=== PATIENT | male | born 1955 | race Two or more races ===

== ENCOUNTER 2025-03-25 22:18 | Inpatient (IN) | payer MEDICARE, OTHER ==
[~2025-03-25] VITALS: Ht 152.4 cm; Wt 68.0 kg
[2025-03-25] MEDS ORDERED: CEPH500T PO (22:35)
[2025-03-25] MEDS ORDERED: OXYC10TA49 PO (22:35)
[2025-03-25] MEDS ORDERED: MORP15TA60 PO (22:35)
[2025-03-25 22:53] LABS: ABG BASE EXCESS 3.9 mmol/L (-2.0-3.0); ABG HCO3 26.1 mmol/L (21.0-28.0); ABG PCO2 30.7 mmHg (35.0-48.0); ABG PH 7.548 (7.350-7.450); ABG PO2 77.7 mmHg (83.0-108.0); ABG SITE RIGHT RADIAL; ABG TOTAL HEMOGLOBIN 9.3 G/dL (13.5-17.5); AaDO2 96.9 mmHg; FIO2 21.0 %
[2025-03-25 22:54] LABS: PLATELET COUNT (AUTO) 87 K/uL (152-348); RED BLOOD CELL COUNT(AUTO) 2.67 MIL/uL (4.06-5.63); RED CELL DISTRIBUTION WIDTH 18.0 % (12.1-16.2); WHITE BLOOD COUNT (AUTO) 5.4 K/uL (3.6-10.2)
[2025-03-25 23:02] LABS: CREATININE 0.4 mg/dL (0.6-1.3); SODIUM SERUM 128 mmol/L (136-145); UREA NITROGEN, BLOOD 12 mg/dL (7-18)
[2025-03-25 23:19] LABS: ASPARTATE AMINOTRANSFERASE 54 U/L (15-37); TOTAL PROTEIN, SERUM 5.6 g/dL (6.4-8.2)
[2025-03-25 23:39] LABS: *BILIRUBIN,URIN NEGATIVE (NEGATIVE); *BLOOD, URINE 2+ (NEGATIVE); *CLARITY,URINE CLEAR (CLEAR); *COLOR,URINE YELLOW (YELLOW); *KETONES,URINE NEGATIVE (NEGATIVE); *PROTEIN,URINE NEGATIVE (NEGATIVE); *UROBILINOGEN,URINE 1.0 E.U./dl (NORMAL); LEUKOCYTE ESTERASE ,URINE 3+ (NEGATIVE); NITRITE, URINE NEGATIVE (NEGATIVE); UGLUCOSE NEGATIVE (NEGATIVE)
[2025-03-25] MEDS ORDERED: MORPHINE SULFATE 4 MG/1 ML DISP.SYRIN ONE (23:58)
[2025-03-25] MEDS ORDERED: MORPHINE SULFATE 2 MG/1 ML DISP.SYRIN ONE (23:58)
[2025-03-26] VITALS (8 sets, daily range): BP systolic 83–124; BP diastolic 58–82; TEMP 97.8–99.4; O2SAT 97–100
[2025-03-26] MEDS: MORPHINE SULFATE 4 MG/1 ML DISP.SYRIN IV ONE (00:02)
[2025-03-26 00:09] LABS: SQUAMOUS EPITHELIAL CELL,UR NONE SEEN /HPF (NONE SEEN)
[2025-03-26] MEDS ORDERED: IOHEXOL 350 100 ML INFUS..BTL ONE (00:11)
[2025-03-26] MEDS ORDERED: SWABABLE VALVE TRANSFER SET EA MC ONE (00:11)
[2025-03-26] MEDS ORDERED: IV NORMAL SALINE 250 ML IV ONE (00:11)
[2025-03-26] MEDS ORDERED: MAGNESIUM HYDROXIDE 30 ML LIQUID UDC PO PRN (03:15)
[2025-03-26] MEDS ORDERED: REMEDY ESSENTIAL ZINC PASTE 113 GM TP PRN (03:15)
[2025-03-26] MEDS ORDERED: CEFTRIAXONE /D5W 50ML IVPB **ER PYXIS IV ONE (03:37)
[2025-03-26] MEDS: PANTOPRAZOLE SODIUM 40 MG TABLET.DR PO SCH (06:19)
[2025-03-26 06:59] LABS: PLATELET COUNT (AUTO) 85 K/uL (152-348); RED BLOOD CELL COUNT(AUTO) 2.68 MIL/uL (4.06-5.63); RED CELL DISTRIBUTION WIDTH 17.8 % (12.1-16.2); WHITE BLOOD COUNT (AUTO) 4.9 K/uL (3.6-10.2)
[2025-03-26 07:05] LABS: CREATININE 0.3 mg/dL (0.6-1.3); SODIUM SERUM 133 mmol/L (136-145); UREA NITROGEN, BLOOD 12 mg/dL (7-18)
[2025-03-26] MEDS: NYSTATIN SUSPENSION 5 ML LIQUID UDC PO SCH (09:40)
[2025-03-26] MEDS: IV NS 1000 ML 1,000 ML IV ONE (10:18)
[2025-03-26] MEDS ORDERED: METOPROLOL TARTRATE 50 MG TABLET PO ONE (20:30)
[2025-03-26] MEDS: IV NORMAL SALINE 500 ML IV ONE (21:04)
[2025-03-26] MEDS: MIDODRINE HCL 5 MG TABLET PO SCH (21:14)
[2025-03-26] MEDS: DILTIAZEM HCL 30 MG TABLET PO SCH (21:55)
[2025-03-26] MEDS: MORPHINE SULFATE SR 15 MG TABLET.SA PO SCH (21:55)
[2025-03-27] VITALS (8 sets, daily range): BP systolic 97–145; BP diastolic 49–71; TEMP 97.6–99.1; O2SAT 95–100
[2025-03-27] MEDS: MORPHINE SULFATE 4 MG/1 ML DISP.SYRIN IV PRN (03:10)
[2025-03-27 07:06] LABS: CREATININE 0.3 mg/dL (0.6-1.3); PLATELET COUNT (AUTO) 75 K/uL (152-348); RED CELL DISTRIBUTION WIDTH 17.9 % (12.1-16.2); SODIUM SERUM 135 mmol/L (136-145); UREA NITROGEN, BLOOD 14 mg/dL (7-18); WHITE BLOOD COUNT (AUTO) 4.9 K/uL (3.6-10.2)
[2025-03-27 07:21] LABS: RED BLOOD CELL COUNT(AUTO) 2.41 MIL/uL (4.06-5.63)
[2025-03-27 08:13] LABS: BAND % (MANUAL) 5 % (0-10); LYMPHOCYTES % (MANUAL) 19 % (20-40); METAMYELOCYTES % 4 % (0-1); MONOCYTES % (MANUAL) 2 % (2-10); MYELOCYTES % 1 % (0-0); NEUTROPHILS % (MANUAL) 69 % (42-75); PLATELET ESTIMATE DECREASED
[2025-03-27 08:15] LABS: NUCLEATED RED BLOOD CELLS 6.0 /100WBC
[2025-03-27] MEDS ORDERED: METOPROLOL TARTRATE 25 MG TABLET PO SCH (09:00)
[2025-03-27] MEDS: OXYCODONE HCL 5 MG TABLET PO PRN (16:48)
[2025-03-28 06:00] VITALS: BP 101/54; TEMP 98; O2SAT 97
[2025-03-28 08:17] LABS: PLATELET COUNT (AUTO) 65 K/uL (152-348); RED CELL DISTRIBUTION WIDTH 18.1 % (12.1-16.2); WHITE BLOOD COUNT (AUTO) 4.3 K/uL (3.6-10.2)
[2025-03-28 08:22] LABS: RED BLOOD CELL COUNT(AUTO) 2.40 MIL/uL (4.06-5.63)
[2025-03-28 08:31] LABS: CREATININE 0.2 mg/dL (0.6-1.3); SODIUM SERUM 134 mmol/L (136-145); UREA NITROGEN, BLOOD 10 mg/dL (7-18)
[2025-03-28] MEDS: ARGININE/GLUTAMINE/CALCIUM BMB 1 EACH POWD.PACK PO SCH (09:39)
[2025-03-28] MEDS: MEDIHONEY= THERAHONEY 1.5 OZ TUBE TOP SCH (09:41)
[2025-03-28] MEDS: POTASSIUM CHLORIDE 10 MEQ TAB.PRT.SR PO SCH (09:46)
[2025-03-28 12:09] VITALS: BP 95/64; TEMP 99; O2SAT 98
[2025-03-28] MEDS ORDERED: MIDO5TAB4 PO (12:13)
[2025-03-28] MEDS ORDERED: NITR50CA4 PO (12:13)
[2025-03-28] MEDS ORDERED: LEVO500T90 PO (12:13)
[2025-03-28] MEDS ORDERED: DILT30TA35 PO (12:13)
[2025-03-28] MEDS ORDERED: NYST5ORA PO (12:13)
[2025-03-28 15:55] VITALS: BP 105/62; TEMP 98.7; O2SAT 98
[2025-03-28 16:46] VITALS: O2SAT 98
[2025-03-28] MEDS: METOPROLOL TARTRATE 50 MG TABLET PO ONE (18:43)
[2025-03-28] MEDS: OXYCODONE HCL 5 MG TABLET PO ONE (18:44)
[2025-03-28] MEDS: ONDANSETRON 4 MG/2 ML VIAL IV PRN (20:46)
[2025-03-28 21:44] VITALS: O2SAT 98
[2025-03-28 21:57] VITALS: BP 100/61; TEMP 98.6; O2SAT 99
[2025-03-29 05:58] VITALS: BP 111/67; TEMP 98.8; O2SAT 98
[2025-03-29 06:45] VITALS: BP 111/64; O2SAT 99
[2025-03-29 07:05] LABS: CREATININE 0.3 mg/dL (0.6-1.3); SODIUM SERUM 132 mmol/L (136-145); UREA NITROGEN, BLOOD 10 mg/dL (7-18)
[2025-03-29 07:15] LABS: PLATELET COUNT (AUTO) 67 K/uL (152-348); RED CELL DISTRIBUTION WIDTH 18.4 % (12.1-16.2); WHITE BLOOD COUNT (AUTO) 3.8 K/uL (3.6-10.2)
[2025-03-29 07:24] LABS: RED BLOOD CELL COUNT(AUTO) 2.17 MIL/uL (4.06-5.63)
[2025-03-29 11:25] VITALS: BP 101/68; TEMP 98.4; O2SAT 99
[2025-03-29 16:13] VITALS: BP 103/62; TEMP 99.1; O2SAT 100
[2025-03-29] MEDS: MORPHINE SULFATE 2 MG/1 ML DISP.SYRIN IV PRN (18:51)
[2025-03-29 19:00] VITALS: BP 110/56; TEMP 98.7; O2SAT 99
[2025-03-30] VITALS (7 sets, daily range): BP systolic 99–115; BP diastolic 50–70; TEMP 98.1–98.8; O2SAT 97–100
[2025-03-30] MEDS: COD LIVER OIL/ZINC OXIDE OINT 113 GM TUBE TOP SCH (21:23)
[2025-03-31 02:48] VITALS: O2SAT 97
[2025-03-31 06:00] VITALS: BP 108/64; TEMP 98; O2SAT 100
[2025-03-31 07:33] LABS: CREATININE 0.3 mg/dL (0.6-1.3); SODIUM SERUM 133 mmol/L (136-145); UREA NITROGEN, BLOOD 8 mg/dL (7-18)
[2025-03-31] MEDS: POTASSIUM CHLORIDE 20 MEQ TAB.PRT.SR PO ONE (10:52)
[2025-03-31 11:01] VITALS: BP 131/47; TEMP 98.2; O2SAT 98
[2025-03-31 15:14] VITALS: BP 106/71; TEMP 97.6; O2SAT 100
[2025-03-31 16:05] VITALS: O2SAT 99
[2025-03-31 19:00] VITALS: BP 115/70; TEMP 98.6; O2SAT 98
[2025-04-01] VITALS (13 sets, daily range): BP systolic 98–129; BP diastolic 47–75; TEMP 97.6–99.8; O2SAT 97–100
[2025-04-01 07:01] LABS: CREATININE 0.2 mg/dL (0.6-1.3); SODIUM SERUM 131 mmol/L (136-145); UREA NITROGEN, BLOOD 9 mg/dL (7-18)
[2025-04-01 07:23] LABS: PLATELET COUNT (AUTO) 60 K/uL (152-348); RED CELL DISTRIBUTION WIDTH 17.4 % (12.1-16.2); WHITE BLOOD COUNT (AUTO) 4.5 K/uL (3.6-10.2)
[2025-04-01 07:41] LABS: RED BLOOD CELL COUNT(AUTO) 2.01 MIL/uL (4.06-5.63)
[2025-04-01 09:27] LABS: LYMPHOCYTES % (MANUAL) 18 % (20-40); MONOCYTES % (MANUAL) 1 % (2-10); MYELOCYTES % 1 % (0-0); NEUTROPHILS % (MANUAL) 80 % (42-75); NUCLEATED RED BLOOD CELLS 25.0 /100WBC
[2025-04-01] MEDS: ARGININE/GLUTAMINE/CALCIUM BMB 1 EACH POWD.PACK PO SCH (15:46)
[2025-04-01] MEDS ORDERED: ARGININE/GLUTAMINE/CALCIUM BMB 1 EACH POWD.PACK PO SCH (17:00)
[2025-04-01] MEDS: ACETAMINOPHEN 325 MG TABLET PO PRN (22:08)
[2025-04-02 05:00] VITALS: BP 104/64; TEMP 98.8; O2SAT 100
[2025-04-02 07:28] LABS: CREATININE 0.3 mg/dL (0.6-1.3); SODIUM SERUM 132 mmol/L (136-145); UREA NITROGEN, BLOOD 10 mg/dL (7-18)
[2025-04-02 07:36] LABS: RED BLOOD CELL COUNT(AUTO) 2.64 MIL/uL (4.06-5.63); RED CELL DISTRIBUTION WIDTH 20.6 % (12.1-16.2); WHITE BLOOD COUNT (AUTO) 5.0 K/uL (3.6-10.2)
[2025-04-02 08:27] LABS: PLATELET COUNT (AUTO) 45 K/uL (152-348)
[2025-04-02] MEDS: POTASSIUM CHLORIDE 20 MEQ TAB.PRT.SR PO ONE (10:33)
[2025-04-02] MEDS ORDERED: LOPERAMIDE HCL 2 MG CAPSULE PO PRN (10:45)
[2025-04-02 11:09] VITALS: BP 158/65; TEMP 97.7; O2SAT 97
[2025-04-02] MEDS: LOPERAMIDE HCL 2 MG CAPSULE PO ONE (11:27)
[2025-04-02 14:50] VITALS: O2SAT 97
[2025-04-02 15:20] VITALS: BP 116/67; TEMP 98.2; O2SAT 98
[2025-04-02 15:35] LABS: BAND % (MANUAL) 20 % (0-10); LYMPHOCYTES % (MANUAL) 18 % (20-40); METAMYELOCYTES % 2 % (0-1); MONOCYTES % (MANUAL) 3 % (2-10); NEUTROPHILS % (MANUAL) 56 % (42-75)
[2025-04-02 15:36] LABS: PLATELET ESTIMATE MARKED DECREASED
[2025-04-02 18:03] VITALS: BP 116/67
== END 2025-04-02 18:15 | disposition hospice, inpatient (51) | DRG 291 ==
LOC: ER 22:18 → TELE3 03-26 03:00 → MEDSURG3 03-27 09:06
PROVIDERS: ADMIT Registered Nurse Psychiatric/Mental Health; ATTEND Nurse Practitioner Acute Care
PROC: 30233N1 Transfusion of Nonautologous Red Blood Cells into Peripheral Vein, Percutaneous Approach (ICD-10-PCS; principal; 2025-04-01)
DX: I11.0 Hypertensive heart disease with heart failure (principal); I50.33 Acute on chronic diastolic (congestive) heart failure; L89.523 Pressure ulcer of left ankle, stage 3; C79.51 Secondary malignant neoplasm of bone; N39.0 Urinary tract infection, site not specified; E87.1 Hypo-osmolality and hyponatremia; B37.0 Candidal stomatitis; C78.02 Secondary malignant neoplasm of left lung; C78.01 Secondary malignant neoplasm of right lung; G82.20 Paraplegia, unspecified; Z87.891 Personal history of nicotine dependence; Z96.652 Presence of left artificial knee joint; G89.3 Neoplasm related pain (acute) (chronic); C61 Malignant neoplasm of prostate; D53.9 Nutritional anemia, unspecified; B96.5 Pseudomonas (aeruginosa) (mallei) (pseudomallei) as the cause of diseases classified elsewhere; L89.156 Pressure-induced deep tissue damage of sacral region; E86.1 Hypovolemia; E87.6 Hypokalemia; D69.6 Thrombocytopenia, unspecified; Z82.49 Family history of ischemic heart disease and other diseases of the circulatory system; Z51.5 Encounter for palliative care; R79.1 Abnormal coagulation profile; F41.9 Anxiety disorder, unspecified; F32.A Depression, unspecified; R32 Unspecified urinary incontinence
CPT/HCPCS: 36415; 36600; 70030-TC; 71045; 71275; 74018; 82803; 83735; 84100; 84484; 85025; 86850; 86900; 86901; 86920; 87077; 87086; 93005; 93307; 94760; A4606; A4663; A6213; G0378; J0696; J1956; J2270; J2405; J7040; P9016; Q9967